=== PATIENT | male | born 1960 | race Caucasian/White ===

== ENCOUNTER → 2016-11-12 | Outpatient (CLI) | payer OTHER | END | disposition home or self-care (01) | LOC: GMAB 10:30 | PROVIDERS: ATTEND Family Medicine | DX: Z00.01 Encounter for general adult medical examination with abnormal findings (principal) ==

== ENCOUNTER → 2017-12-08 | Outpatient (CLI) | payer OTHER | END | disposition home or self-care (01) | LOC: GMAB 10:35 | PROVIDERS: ATTEND Family Medicine | DX: Z00.01 Encounter for general adult medical examination with abnormal findings (principal) ==

== ENCOUNTER 2018-07-04 14:24 | Emergency (ER) | payer OTHER ==
[2018-07-04 14:43] VITALS: TEMP 98.3
[2018-07-04] MEDS ORDERED: ONDANSETRON INJ 4 MG/2 ML VIAL IV ONE (14:49)
[2018-07-04] MEDS ORDERED: ONDANSETRON ODT 8 MG TAB SL ONE (15:14)
--- NOTE | 2018-07-04 15:43 | ED.PDOC ---
History of Present Illness - General Chief Complaint: Problem Stated Complaint: Possible R kidney stone Time Seen by Provider: 07/04/18 15:09 Source: patient Exam Limitations: no limitations - History of Present Illness Initial Comments: Patient presents with intermittent right abdominal pain since this morning. It starts in the right flank and shoots to the groin. He had some associated nausea with it. He says that it is exactly like the pain he has gotten when he has had ureteral stones. No dysuria nor hematuria. No other complaints. Timing/Duration: 4-6 hours Improving Factors: nothing Worsening Factors: nothing Associated Symptoms: denies symptoms Allergies/Adverse Reactions: Allergies NO KNOWN ALLERGY Allergy (Verified 07/04/18 14:49) Home Medications: Ambulatory Orders Allopurinol [Allopurinol] 300 mg PO DAILY 07/04/18 Amlodipine-Atorvastatin 5 - 10 mg PO DAILY 07/04/18 Ketorolac Tromethamine [Toradol Tabs] 10 mg PO Q6HR #20 tab 07/04/18 Lisinopril & Hydrochlorothiazi [Lisinopril/Hctz 20-25 mg] 1 tab PO DAILY Potassium Citrate (Alkalinizer [Potassium Citrate Monohyd] 10 meq PO BID Tamsulosin HCl [Flomax] 0.4 mg PO DAILY #7 cap 07/04/18 metFORMIN HCL [Glucophage] 500 mg PO BID 07/04/18 Review of Systems - Review of Systems Constitutional: States: no symptoms reported EENTM: States: no symptoms reported Respiratory: States: no symptoms reported Cardiology: States: no symptoms reported Gastrointestinal/Abdominal: States: no symptoms reported Genitourinary: States: see HPI Musculoskeletal: States: no symptoms reported Skin: States: no symptoms reported Neurological: States: no symptoms reported Endocrine: States: no symptoms reported Hematologic/Lymphatic: States: no symptoms reported Past Medical History (General) - Patient Medical History Hx Stroke: No Hx Congestive Heart Failure: No Hx Hypertension: Yes Hx Diabetes: Yes Hx Renal Disease: - Hx kidney stones Hx Cancer: Yes - Hx basal cell carcinomas Hx MRSA: No - Vaccination History Hx Influenza Vaccination: No Hx Pneumococcal Vaccination: No - Social History Hx Tobacco Use: No Hx Alcohol Use: No Family Medical History - Family History Father Living Status: Hx Family Hypertension: Yes Hx Cardiac Disease: Yes Hx Family Diabetes: Yes Physical Exam - Physical Exam General Appearance: Alert Eye Exam: bilateral normal Ears, Nose, Throat: hearing grossly normal, normal ENT inspection Neck: non-tender, full range of motion, supple Respiratory: lungs clear, normal breath sounds Cardiovascular/Chest: normal peripheral pulses, regular rate, rhythm, no edema Gastrointestinal/Abdominal: normal bowel sounds, non tender, soft Back Exam: normal inspection, no CVA tenderness Extremity: normal range of motion, non-tender, normal inspection 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, no motor/sensory deficits, alert, normal mood/affect, oriented x 3 Skin Exam: normal color Lymphatic: no adenopathy Progress - Progress Progress: 07/04/18 17:25 Laboratory Tests 07/04/18 07/04/18 07/04/18 15:07 15:25 15:52 WBC 10.0 RBC 5.05 Hgb 15.3 Hct 46.9 MCV 93.0 MCH 30.4 MCHC 32.7 L RDW 14.7 H Plt Count 267 MPV 8.4 Absolute Neuts (auto) 6.70 Absolute Lymphs (auto) 2.50 Absolute Monos (auto) 0.70 Absolute Eos (auto) 0.00 Absolute Basos (auto) 0.10 Neutrophils % 67.2 Lymphocytes % 24.9 Monocytes % 6.9 Eosinophils % 0.2 L Basophils % 0.8 Sodium 141 Potassium 3.8 Chloride 111 Carbon Dioxide 19 L Anion Gap 14.8 BUN 15 Creatinine 0.74 BUN/Creatinine Ratio 20.3 H Random Glucose 119 H Serum Osmolality 283.2 Calcium 9.5 Urine Color Yellow Urine Appearance Clear Urine pH 5.0 Ur Specific [place] 1.015 Urine Protein Negative Urine Glucose (UA) Negative Urine Ketones Negative Urine Blood Moderate H Urine Nitrite Negative Urine Bilirubin Negative Urine Urobilinogen 0.2 Ur Leukocyte Esterase Negative Urine RBC 10-20 H Urine WBC 0-1 Ur Epithelial Cells 0-1 Amorphous Sediment 1+ Urine Bacteria 0 CT ab/pelvis showed 4 mm calculus in the mid right ureter. Care instructions given. E.R. warnings given. Questions were elicited and answered. The patient voiced understanding and agreement with the plan. Departure - Departure Clinical Impression: Ureteral stone Disposition: Discharge to Home or Self Care Condition: Good Departure Forms: ED Discharge - Pt. Copy, Patient Portal Self Enrollment Instructions: DI for Kidney Stones Diet: other - as per your regular doctor Activity: increase activity as tolerated Referrals: Marek Dillard MD [Primary Care Provider] - 1-2 Weeks Prescriptions: Ketorolac Tromethamine [Toradol Tabs] 10 mg PO Q6HR #20 tab Tamsulosin HCl [Flomax] 0.4 mg PO DAILY #7 cap Home Medications: Ambulatory Orders Allopurinol [Allopurinol] 300 mg PO DAILY 07/04/18 Amlodipine-Atorvastatin 5 - 10 mg PO DAILY 07/04/18 Ketorolac Tromethamine [Toradol Tabs] 10 mg PO Q6HR #20 tab 07/04/18 Lisinopril & Hydrochlorothiazi [Lisinopril/Hctz 20-25 mg] 1 tab PO DAILY Potassium Citrate (Alkalinizer [Potassium Citrate Monohyd] 10 meq PO BID Tamsulosin HCl [Flomax] 0.4 mg PO DAILY #7 cap 07/04/18 metFORMIN HCL [Glucophage] 500 mg PO BID 07/04/18 Additional Instructions: Increase oral fluids. See your regular doctor is symptoms continue more than 3 more days. Return to the E.R. for painful urination or temperature above 100.4.
--- NOTE | 2018-07-04 17:11 | CT ---
EXAM DESCRIPTION: Abdoment/Pelvis w/o Contrast CLINICAL HISTORY:57 years Male, Stone protocol Comparison: None TECHNIQUE: Contiguous axial images of the abdomen and pelvis were obtained followed by reconstruction images. This exam was performed according to our departmental dose-optimization program, which includes automated exposure control, adjustment of the mA and/or kV according to patient size and/or use of iterative reconstruction technique. FINDINGS: Lung bases: Minimal subsegmental atelectasis at the lung bases. No focal lung consolidation. Heart: Visualized heart is within normal limits in size. Liver:Diffuse low-attenuation throughout the liver consistent with hepatocellular disease/fatty infiltration. No focal liver lesion seen. Gallbladder:Unremarkable. No gallstones. No gallbladder wall thickening or pericholecystic fluid. Spleen:Unremarkable Pancreas: Pancreas is unremarkable. Adrenal glands:Within normal limits. Kidneys/ureters:Bilateral renal cysts measuring up to 3 cm and left and 3.2 cm in the right. Punctate calculi seen within the left renal lower pole and the right renal upper pole. 4 mm calculus in the right mid/distal ureter with resultant mild fullness of the right renal collecting system. No left ureteral calculus. Bladder:Unremarkable. Pelvic organs: No acute abnormality Vascular structures: Diffuse atherosclerotic calcifications. Peritoneum: No free fluid. Lymph nodes: No abnormal lymph nodes. Stomach/small bowel/colon: Stomach is unremarkable. Small bowel is unremarkable. Colon diverticulosis without evidence diverticulitis. Appendix: Appendix seen, within normal limits. Bones: Mild spine degenerative changes. Soft tissues: Small fat containing bilateral inguinal hernia. . Small fat-containing umbilical hernia. IMPRESSION: * 4 mm calculus within the right mid/distal ureter with resultant mild fullness of the right renal collection system. Additional bilateral nephrolithiasis. * Bilateral renal cysts. * Colonic diverticulosis without evidence of diverticulitis. * Hepatic steatosis. Electronically signed by: Maurilio Huffman MD 07/04/2018 5:09 PM CDT
[2018-07-04] MEDS ORDERED: KETOROLAC TROMETHAMINE INJ 30 MG/ML VIAL IM ONE (17:30)
[2018-07-04 17:44] VITALS: BP 138/87; O2SAT 98
== END 2018-07-04 17:44 | disposition home or self-care (01) ==
LOC: ER 14:24
DX: N20.1 Calculus of ureter (principal); I10 Essential (primary) hypertension; E11.9 Type 2 diabetes mellitus without complications; Z79.84 Long term (current) use of oral hypoglycemic drugs; Z87.442 Personal history of urinary calculi; Z85.820 Personal history of malignant melanoma of skin
CPT/HCPCS: 36415; 74176; 80048; 81001; 85025; J1885

== ENCOUNTER → 2018-07-20 | Outpatient (CLI) | payer OTHER ==
--- NOTE | 2018-07-21 08:26 | CT ---
EXAM DESCRIPTION: Abdomen/Pelvis w/o Contrast: Computed Tomography. CLINICAL HISTORY: N20.1. Calculus of ureter. Left side abdominal pain. History kidney stones. COMPARISON: CT scan of abdomen and pelvis 07/04/2018. TECHNIQUE: Spiral-axial scans 2.5 x 2.5 mm intervals through the abdomen and pelvis without oral or IV contrast. Coronal and sagittal 2.0 mm reconstructions.Total Exam DLP: 1609.08 mGy-cm. This exam was performed according to our departmental CT dose-optimization program which includes automated exposure control, adjustment of the mA and/or kV according to patient size and/or use of iterative reconstruction technique; to reduce radiation dose to as low as reasonably achievable (ALARA). FINDINGS: Kidneys and Ureters: 2.8 cm cyst lateral left renal cortex. 1.5 cm cyst lateral upper pole. 2 cm cyst inferior anterior cortex. 2.1 mm and 3.3 mm radiodense stones in the inferior collecting system. 3.4 cm cyst medial cortex of the upper pole of the right kidney. Multiple cysts in the lower half of the left kidney ranging in size from 1.5 to 2.3 cm in diameter. 2.4 mm radiodense stone in the inferior collecting system. 4 mm radiodense stone in the upper collecting system. 2 mm and 1 mm cysts in the upper renal cortex. No hydronephrosis bilaterally. Pararenal fascial thickening is symmetric bilaterally. Bilateral ureters are normal caliber not containing radiodense stones. Pelvic Organs: Urinary bladder not well distended. No radiodense stones. Distal ureters unremarkable. Prostate gland abutting the seminal vesicles with calcification on the left. Lung bases and pleura: Focal pleural thickening abutting the lateral superior aspect of the right major fissure. Bibasilar pleural thickening versus effusion. Atelectasis posterior recess of the left lower lobe. Calcification at the aortic root. Liver, stomach, spleen, and adrenal glands: Fatty low-density of the liver. Stomach is negative. Remaining solid organs are unremarkable. Pancreas, Gallbladder, and Ducts: Gallbladder is visualized. Normal caliber of the duct. Steatosis of the pancreas. Mesentery: No fatty stranding or abnormal fascial thickening. No free air or free fluid. Aorta: Minimal atherosclerotic calcification. Small Bowel: Negative. Terminal Ileum/Cecum: Unremarkable. Normal caliber of the appendix. Normal density of the surrounding fat. Colon: Minimal fecal matter anteriorly. Moderate redundancy of the sigmoid colon. Spine and Bony Pelvis: Bridging spurs over the disc spaces and the lumbar spine and thoracic spine. Spondylosis L5-S1 with bilateral significant foraminal narrowing also left L4-5 foraminal narrowing. Bilateral superior lateral acetabula facets are hypertrophic resulting in lateral superior joint space narrowing and over coverage of the femoral heads. Marginal spur on the inferior right femoral head. Abdominal Wall/Back Soft Tissues: Bilateral fatty inguinal hernias not containing bowel. Fatty hernia at the umbilicus not containing bowel. IMPRESSION: 1. Multiple cysts both kidneys. Larger 4 mm stone in the lateral aspect of the upper collecting system of the left kidney is stable. A second stone seen in the medial upper collecting system on the prior study is no longer present. Small stone in the inferior collecting system today. Stable small radiodense stones in the inferior collecting system of the left kidney. No hydronephrosis, no ureteral stones and no periureteral or perinephric edema. 2. Stable bilateral fatty inguinal hernias and fatty umbilical hernia with no bowel in the hernias. 3. Stable steatosis of the liver and pancreas. 4. Stable bilateral pleural thickening in the lung bases. 5. Stable spondylosis L5-S1 with bilateral significant foraminal narrowing and also stable left foraminal narrowing L4-5. Bilateral superior lateral acetabular facets are hypertrophic resulting in over coverage of the femoral heads. This can be a contributor to pincer-type femoral acetabular impingement. Electronically signed by: Darius Brito MD 07/21/2018 8:24 AM [employer]
== END ==
LOC: CT 08:27
PROVIDERS: ATTEND Urology
DX: N20.1 Calculus of ureter (principal); N28.1 Cyst of kidney, acquired; K42.9 Umbilical hernia without obstruction or gangrene; K40.20 Bilateral inguinal hernia, without obstruction or gangrene, not specified as recurrent; M47.897 Other spondylosis, lumbosacral region; K76.0 Fatty (change of) liver, not elsewhere classified

== ENCOUNTER → 2018-12-13 | Outpatient (CLI) | payer OTHER | LOC: YCFC.O 10:38 | PROVIDERS: ATTEND Family Medicine | DX: Z00.00 Encounter for general adult medical examination without abnormal findings (principal); I10 Essential (primary) hypertension; E11.9 Type 2 diabetes mellitus without complications; E78.5 Hyperlipidemia, unspecified; Z87.442 Personal history of urinary calculi ==

== ENCOUNTER → 2020-01-08 | Outpatient (CLI) | payer OTHER | LOC: GMAE 12:02 | PROVIDERS: ATTEND Family Medicine | DX: Z00.00 Encounter for general adult medical examination without abnormal findings (principal) ==